=== PATIENT | female | born 1950 | race Caucasian/White ===

== ENCOUNTER → 2016-06-02 | Outpatient (CLI) | payer MEDICARE, OTHER ==
--- NOTE | 2016-06-02 16:49 | RADRPT ---
PROCEDURE: XR Chest. CLINICAL INDICATION: Shortness of breath. TECHNIQUE: PA and Lateral views of the chest were obtained. COMPARISON: Preop chest x-ray 04/30/2015. FINDINGS: The heart is enlarged. Infiltrates have developed in the bases of the lungs since the earlier study . There are vascular calcifications of the aortic arch. Pulmonary vasculature and right pleural sp ray are normal. The soft tissues are generous. The left costophrenic angle is obscured. IMPRESSION: 1. Interval development of interstitial bibasilar infiltrates since 04/30/2015 suspicious for pneumo marbella. There are additional plate-like density suspicious for atelectasis in the right left lower lob es. 2. Cardiomegaly. 3. A small left pleural effusion is not excluded. 4. Atherosclerosis of the aortic arch. RPTAT:AAJJ Physician [place] Date Time Electronically viewed and signed by Aneudy Senior Physician on 06/02/2016 16:49 ANTHONY/
== END | disposition home or self-care (01) ==
LOC: RAD 14:11
PROVIDERS: ATTEND Internal Medicine
DX: R06.02 Shortness of breath (principal); I51.7 Cardiomegaly; J90 Pleural effusion, not elsewhere classified; I70.0 Atherosclerosis of aorta
CPT/HCPCS: 71020